=== PATIENT | male | born 1975 | race Caucasian/White ===

== ENCOUNTER 2017-02-07 22:34 | Emergency (ER) | payer OTHER ==
[2017-02-07 22:55] VITALS: BMI 26.4
[2017-02-07 22:58] VITALS: RESP 18; TEMP 97.9; O2SAT 96
[2017-02-07] MEDS ORDERED: DiphenhydrAMINE 50 mg/ml Inj IVP ONE (23:41)
--- NOTE | 2017-02-07 23:46 | ED PDOC ---
Arrival/HPI - General Chief Complaint: Headache Time Seen by Provider: 02/07/17 22:58 Historian: Patient - History of Present Illness Narrative History of Present Illness (Text): 02/07/17 23:42 Ana Francis is a 41 year old male who presents to the Emergency department complaining of intermittent frontal headaches for 3 weeks. Patient also reports associated nausea. Patient denies any fever, chills, chest pain, shortness of breath, vomiting, diarrhea, urinary symptoms, back pain, neck pain, dizziness, or any other complaints. Time/Duration: < month (3 weeks) Symptom Onset: Gradual Symptom Course: Unchanged Activities at Onset: Rest, Light Context: Home Past Medical History - Provider Review Nursing Documentation Reviewed: Yes - Infectious Disease Hx of Infectious Diseases: None - Psychiatric Hx Substance Use: No - Anesthesia Hx Anesthesia: No Family/Social History - Physician Review Nursing Documentation Reviewed: Yes Family/Social History: No Known Family HX Smoking Status: Never Smoked Hx Alcohol Use: No Hx Substance Use: No Allergies/Home Meds Allergies/Adverse Reactions: Allergies No Known Allergies Allergy (Verified 02/07/17 22:54) Review of Systems - Physician Review All systems were reviewed & negative as marked: Yes - Review of Systems Constitutional: Normal. absent: Fevers Eyes: Normal ENT: Normal Respiratory: Normal. absent: SOB, Cough Cardiovascular: Normal. absent: Chest Pain Gastrointestinal: Nausea. absent: Abdominal Pain, Diarrhea, Vomiting Genitourinary Male: Normal. absent: Dysuria, Frequency, Hematuria, Urinary Output Changes Musculoskeletal: Normal. absent: Back Pain, Neck Pain Skin: Normal Neurological: Headache. absent: Dizziness Endocrine: Normal Hemo/Lymphatic: Normal Psychiatric: Normal Physical Exam Vital Signs Reviewed: Yes Vital Signs Temp Pulse Resp BP Pulse Ox 02/08/17 02:15 54 L 18 120/72 96 02/07/17 22:57 97.9 F 67 18 134/79 96 Temperature: Afebrile Blood Pressure: Normal Pulse: Regular Respiratory Rate: Normal Appearance: Positive for: Well-Appearing, Non-Toxic, Comfortable Pain Distress: None Mental Status: Positive for: Alert and Oriented X 3 - Systems Exam Head: Present: Atraumatic, Normocephalic Pupils: Present: PERRL Extroacular Muscles: Present: EOMI Conjunctiva: Present: Normal Ears: Present: NORMAL TM Mouth: Present: Moist Mucous Membranes Pharnyx: Present: Normal Neck: Present: Normal Range of Motion. No: Meningeal Signs Respiratory/Chest: Present: Clear to Auscultation, Good Air Exchange. No: Respiratory Distress, Accessory Muscle Use Cardiovascular: Present: Regular Rate and Rhythm, Normal S1, S2. No: Murmurs Abdomen: Present: Normal Bowel Sounds. No: Tenderness, Distention, Peritoneal Signs Back: Present: Normal Inspection Upper Extremity: Present: Normal Inspection. No: Cyanosis, Edema Lower Extremity: Present: Normal Inspection. No: Edema Neurological: Present: GCS=15, CN II-XII Intact, Speech Normal, Motor Func Grossly Intact, Normal Sensory Function Skin: Present: Warm, Dry, Normal Color. No: Rashes Psychiatric: Present: Alert, Oriented x 3, Normal Insight, Normal Concentration Medical Decision Making ED Course and Treatment: 02/07/17 23:43 Impression: 41 year old male complaining of intermittent headache 3 weeks with nausea. Differential Diagnosis include but are not limited to: sinusitis vs. migraine Plan: -- CT Head w/o contrast -- IV fluids -- Reglan -- Benadryl -- Reassess and disposition Progress Notes: 02/08/17 00:33 Reviewed radiology, CT Head shows: No acute intracranial hemorrhage, or suspicious mass effect. Severe inflammatory sinus disease, as detailed above 02/08/17 02:30 On re-evaluation, the patient feels better and is in no acute distress. I have discussed the results and plan with the patient, who expresses understanding. Patient in agreement with plan to discharged home. Patient is stable for discharge. Patient was instructed to follow up with physician/clinic in 1-2 days or return if symptoms worsen or new concerning symptoms arise. - RAD Interpretation Narrative RAD Interpretations (Text): CT Head shows: Brain: No acute intracranial hemorrhage. No significant white matter disease. No edema. Ventricles: No significant ventriculomegaly. Bones: No acute displaced fracture. Sinuses: Opacification of the right frontal sinus, as well as mucoperiosteal thickening within the bilateral ethmoid sinuses as well as the bilateral sphenoid sinuses. Mastoid air cells: Unremarkable as visualized. No mastoid effusion. IMPRESSION: No acute intracranial hemorrhage, or suspicious mass effect. 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 - Medication Orders Current Medication Orders: Discontinued Medications Amoxicillin/Clavulanate Potassium (Augmentin 875 Mg-125 Mg Tab) 1 tab PO ONCE STA PRN Reason: Protocol Stop: 02/08/17 02:24 Diphenhydramine HCl (Benadryl) 25 mg IVP ONCE ONE Stop: 02/07/17 23:42 Last Admin: 02/07/17 23:55 Dose: 25 MG IVP Administration Document 02/07/17 23:55 TERRY (Rec: 02/08/17 00:03 TERRY [facility] [id number][place] Charges for Administration # of IVP Administrations 1 Sodium Chloride (Sodium Chloride 0.9%) 1,000 mls @ 999 mls/hr IV .Q1H1M STA Stop: 02/08/17 00:41 Last Admin: 02/08/17 00:55 Dose: 999 MLS/HR eMAR Start Stop Document 02/08/17 00:55 TERRY (Rec: 02/08/17 00:56 TERRY [facility] [id number]) Intravenous Solution Start Date 02/07/17 Start Time 23:50 End Date 02/08/17 End time 00:50 Total Infusion Time 60 Metoclopramide HCl (Reglan) 10 mg IVP ONCE ONE Stop: 02/07/17 23:42 Last Admin: 02/07/17 23:55 Dose: 10 MG IVP Administration Document 02/07/17 23:55 TERRY (Rec: 02/08/17 00:04 TERRY [facility] [id number]) Charges for Administration # of IVP Administrations 1 - Scribe Statement The provider has reviewed the documentation as recorded by the Molly Staples Provider Attestation: All medical record entries made by the Molly were at my direction and personally dictated by me. I have reviewed the chart and agree that the record accurately reflects my personal performance of the history, physical exam, medical decision making, and the department course for this patient. I have also personally directed, reviewed, and agree with the discharge instructions and disposition. Disposition/Present on Arrival - Present on Arrival Any Indicators Present on Arrival: No History of DVT/PE: No History of Uncontrolled Diabetes: No Urinary Catheter: No History of Decub. Ulcer: No History Surgical Site Infection Following: None - Disposition Have Diagnosis and Disposition been Completed?: Yes Diagnosis: Sinusitis, Headache Disposition: HOME/ ROUTINE Disposition Time: 02:28 Patient Plan: Discharge Patient Problems: Current Active Problems Problem Status Diagnosed Headache Acute Sinusitis Acute Condition: GOOD Discharge Instructions (ExitCare): Sinusitis (ED) Additional Instructions: Take meds as prescribed/follow up with your doctor this week Prescriptions: Fexofenadine/Pseudoephedrine [Kizzy-D 12 Hour Tablet] 1 each PO BID PRN #20 tab.er.12h PRN Reason: Nasal Congestion Amoxicillin/Clavulanate [Augmentin 875 MG-125 MG] 1 tab PO BID #28 tab Acetaminophen/Butalbital/Caf [Fioricet] 1 tab PO Q6 PRN #16 tab PRN Reason: Headache
[2017-02-07] MEDS: Sodium Chloride 0.9% 1,000 ML IV STA (23:50)
--- NOTE | 2017-02-08 00:28 | CT ---
EXAM: CT Head Without Intravenous Contrast CLINICAL HISTORY: 41 years old, male; Pain; Headache; Headache not specified TECHNIQUE: Axial computed tomography images of the head/brain without intravenous contrast. This CT exam was performed using one or more of the following dose reduction techniques: automated exposure control, adjustment of the mA and/or kV according to patient size, and/or use of iterative reconstruction technique. COMPARISON: No relevant prior studies available. FINDINGS: Brain: No acute intracranial hemorrhage. No significant white matter disease. No edema. Ventricles: No significant ventriculomegaly. Bones: No acute displaced fracture. Sinuses: Opacification of the right frontal sinus, as well as mucoperiosteal thickening within the bilateral ethmoid sinuses as well as the bilateral sphenoid sinuses. Mastoid air cells: Unremarkable as visualized. No mastoid effusion. IMPRESSION: No acute intracranial hemorrhage, or suspicious mass effect. Severe inflammatory sinus disease, as detailed above.
[2017-02-08] MEDS: Sodium Chloride 0.9% 1,000 ML IV STA (00:55)
[2017-02-08 02:15] VITALS: BP 120/72; PULSE 54
[2017-02-08] MEDS ORDERED: Amoxicillin-Clav 875-125 mg Tab PO STA (02:23)
== END 2017-02-08 02:45 | disposition home or self-care (01) ==
LOC: ED 22:34
DX: R51 Headache (principal); J32.9 Chronic sinusitis, unspecified
CPT/HCPCS: 70450; 96361; 96374; 96375; 99285; J1200; J2765; J7040